=== PATIENT | female | born 1990 | race Caucasian/White ===

== ENCOUNTER 2021-10-13 03:10 | Inpatient (IN) | payer BC ==
[2021-10-13] VITALS (25 sets, daily range): BP systolic 100–148; BP diastolic 53–84; PULSE 72–115; TEMP 97.6–98
--- NOTE | 2021-10-13 03:30 | NUR ---
0330- PATIENT AND SPOUSE AMBULATORY TO THE UNIT. PATIENT IS FROM [facility] BUT TRANSFERRED HERE DUE TO HOSPITAL ISSUES AT [facility]. PATIENT IS A AT 39.6 WHO SROM'D AT 0215 AT HOME. PATIENT DENIES COMPLICATION DURING THE OTHER THAN GBS+. WE ARE WAITING ON RECORDS FROM [facility] AT THIS TIME. PATIENT REPORTS GFM, NO BLEEDING AND IRREGULAR CONTRACTIONS. 0335- EFM AND TOCO ON AND TRACING. VITALS TAKEN, ASSESSMENT COMPLETED, PLAN OF CARE DISCUSSED.
[2021-10-13] MEDS ORDERED: PROBIOTIC BLEN1 EACH PO (04:41)
[2021-10-13] MEDS ORDERED: PRENATAL TABLET PO (04:41)
--- NOTE | 2021-10-13 04:50 | NUR ---
0450- PATIENT TAKEN OFF MONITORS FOR AMBULATION DURING INTERMITTENT MONITORING. DENIES FURTHER NEEDS AT THIS TIME.
[2021-10-13 06:18] LABS: BASO % 0.1 % (0.0-2.0); EOS # 0.1 K/mm3 (0.0-0.7); EOS % 0.3 % (0.0-4.0); GRAN # 11.6 K/mm3 (1.4-6.5); GRAN % 77.8 % (42.2-75.2); HEMOGLOBIN 14.4 g/dl (12.5-16.0); LYMPH # 2.2 K/mm3 (1.2-3.4); MEAN CELL VOLUME 86 fl (80.0-100.0); MEAN CORPUSCULAR HEMOGLOBIN 30 pg (27-31); MEAN CORPUSCULAR HGB CONC 35 g/dl (33.0-37.0); MEAN PLATELET VOLUME 10.9 fl (7.4-10.4); MONO % 6.4 % (1.7-9.3); PLATELET COUNT 184 K/mm3 (130-400); RED BLOOD COUNT 4.79 M/mm3 (4.10-5.30); REDCELL DISTRIBUTION WIDTH-CV 13.2 % (11.5-14.5)
--- NOTE | 2021-10-13 09:04 | NUR ---
INTERMITTENT MONITORING THROUGHOUT THIS MORNING. PT HAS NO MEDICATIONS INFUSING AND NO EPIDURAL AT THIS TIME. REQUESTING TO AMBULATE IN HALLWAY FOLLOWING EACH 20 MINUTE REACTIVE STRIP. 20 MINUTES ON MONITOR FOLLOWED BY 40 MINUTES AMBULATING PER PT REQUEST AND PROTOCOL. CATEGORY 1 STRIP THROUGHOUT MORNING.
--- NOTE | 2021-10-13 09:15 | NUR ---
AT BEDSIDE. SVE /-2, UNCHANGED. DISCUSSES BENEFIT OF STARTING PITOCIN TO HELP INCREASE FREQUENCY OF CONTRACTIONS, PT STATES SHE WILL DISCUSS OPTION WITH AND LET US KNOW AT 1000.
--- NOTE | 2021-10-13 10:22 | NUR ---
PT REFUSING TO START PITOCIN AT THIS TIME. STATES "I WILL START IT, BUT NOT YET. MY CONTRACTIONS ARE HURTING WORSE, I WANT TO WAIT AND SEE WHAT HAPPENS." PT AMBULATING IN ROOM. INTERMITTENT MONITORING. CATEGORY ONE STRIP PRIOR TO AMBULATION. LR INFUSING PER PROTOCOL. DENIES FURTHER NEEDS AT THIS TIME.
--- NOTE | 2021-10-13 12:18 | NUR ---
1120: PITOCIN STARTED PER PT REQUEST AND VORB FROM AT 2MU PER PROTOCOL. 1200: PT REFUSING TO INCREASE PITOCIN PAST 2MU. CONTRACTIONS REMAIN Q4-7MIN. EDUCATED ON USE OF PITOCIN AND BENEFITS OF MEDICATION. PT STATES "THEY'RE AT A 10/10 PAIN, I CANT HANDLE INCREASING ANY PITOCIN YET." THIS NURSE REMAINS AT BEDSIDE ASSISTING IN POSITION CHANGES AND COMFORT MEASURES.
--- NOTE | 2021-10-13 13:18 | NUR ---
1310: AT BEDSIDE. SVE COMPLETE, PT BEGINS PUSHING. ROOM PREPARED FOR DELIVERY. 1317: DELIVERY OF INFANT HEAD. SHOULDER DYSTOCIA NOTED. HOB LOWERED. JEANIE AND SUPRAPUBIC PRESSURE PERFORMED. DELIVERY OF SHOULDERS ACHIEVED BY . 1318: OF VIABLE MALE INFANT. CORD CLAMPED X2 AND CUT BY FOB. BABY TO WARMER FOLLOWING SHOULDER DYSTOCIA. CARE ASSUMED BY ERNIE DE LEÓN. 1321: OF PLACENTA PER . PITOCIN INFUSING PER PROTOCOL. PLACED BACK ON MATERNAL CHEST. SKIN TO SKIN AT THIS TIME. LIDOCAINE TO PERINEUM REPAIRS 2ND DEGREE LACERATION. VITAL SIGNS STABLE. LOCHIA WNL. NO CLOTS NOTED WITH FUNDAL MASSAGE. MATERNAL VITAL SIGNS STABLE. WILL CONTINUE PP CARE PER PROTOCOL.
[2021-10-13] MEDS ORDERED: MOTRIN 800800 MG/TAB PO (13:39)
--- NOTE | 2021-10-13 15:30 | NUR ---
FUNDUS REMAINS FIRM 1FB BELOW UMBILICUS. LOCHIA SMALL, NO CLOTS. VITAL SIGNS STABLE. PT TOLERATES STANDING WITH NO DIFFICULTY OR C/O DIZZINESS. AMBULATORY TO RESTROOM WITH SLOW STEADY GAIT. PT VOIDS 400CC BLOOD TINGED URINE. KAYLENE CARE PROVIDED BY THIS NURSE. NEW UNDERWEAR/PAD/ICE PACK/GOWN PLACED ON PATIENT. PT TOLERATED ACTIVITY WELL. LOCHIA REMAINS SMALL WITH NO CLOTS UPON TOILETING AND AMBULATION. PT ASSISTED TO ROOM #216 VIA WHEELCHAIR TO CONTINUE PP CARES PER PROTOCOL. ORIENTED TO NEW ROOM. DENIES FURTHER QUESTIONS OR CONCERNS AT THIS TIME.
[2021-10-14 00:15] VITALS: BP 120/71; PULSE 79; TEMP 97.8
[2021-10-14 07:22] VITALS: BP 113/69; PULSE 85; TEMP 97.8
== END 2021-10-14 16:05 | disposition home or self-care (01) | DRG 807 ==
LOC: LDRO 03:10 → LDR 04:30 → OB 18:58
PROVIDERS: ADMIT Obstetrics & Gynecology
PROC: 10E0XZZ Delivery of Products of Conception, External Approach (ICD-10-PCS; principal; 2021-10-13)
PROC: 0KQM0ZZ Repair Perineum Muscle, Open Approach (ICD-10-PCS; 2021-10-13)
DX: O99.824 Streptococcus B carrier state complicating childbirth (principal); Z37.0 Single live birth; O99.214 Obesity complicating childbirth; O76 Abnormality in fetal heart rate and rhythm complicating labor and delivery; O62.1 Secondary uterine inertia; O66.0 Obstructed labor due to shoulder dystocia; O70.1 Second degree perineal laceration during delivery; Z3A.39 39 weeks gestation of pregnancy
CPT/HCPCS: J2540; J2590; J7120